=== PATIENT | female | born 1940 | race Caucasian/White ===

== ENCOUNTER 2017-05-27 | Emergency (ER) | payer MEDICARE, OTHER ==
--- NOTE | 2017-05-27 00:32 | EDM.PDOC ---
ED HPI GENERAL MEDICAL PROBLEM - General Chief Complaint: Cardiovascular Problem Stated Complaint: BLOOD PRESSURE [id number] Time Seen by Provider: 05/27/17 00:10 Source of Information: Reports: Patient History Limitations: Reports: No Limitations - History of Present Illness INITIAL COMMENTS - FREE TEXT/NARRATIVE: This 76 yo female patient reports to the ED with elevated blood pressure. The patient reports she has seen by her primary care provider (Sasha Chaudhry) earlier this week due to elevated blood pressure. The patient reports that she was instructed to monitor her blood pressure and follow-up in the clinic. The patient was started on Lorazepam for anxiety and stress. The patient reports she took her blood pressure 3 times today and the last reading was very high. The patient reports no current chest pain, shortness of breath or other symptoms. The patient reports she took her Benicar HCT this morning as she normally does. The patient reports she checked her blood pressure at 2230 tonight after taking a Lorazepam at 2200, but her blood pressure was in the 190' s. With that high reading, the patient got up at 2330 to check her blood pressure again. With a systolic blood pressure >200, the patient came into the ED for further evaluation. Onset: Gradual Duration: Day(s): Severity: Mild Improves with: Reports: None Worsens with: Reports: None Associated Symptoms: Denies: Chest Pain, Fever/Chills, Headaches, Shortness of Breath, Syncope, Weakness - Related Data Allergies Allergy/AdvReac Type Severity Reaction Status Date / Time alendronate sodium Allergy Rash Verified 05/27/17 00:09 [From Fosamax] niacin Allergy Rash Verified 05/27/17 00:09 nifedipine [From Procardia] Allergy Hypotension Verified 05/27/17 00:09 Home Meds: Home Meds Aspirin [Adult Low Dose Aspirin EC] 81 mg PO DAILY 07/09/15 [History] Calcium Carbonate [Calcium] 1 tab PO DAILY 07/09/15 [History] Cholecalciferol (Vitamin D3) [Vitamin D] 5,000 unit PO DAILY 07/09/15 [History] Fenofibrate [Fenofibrate] 1 tab PO DAILY 07/09/15 [History] Olmesartan/Hydrochlorothiazide [Benicar HCT 40-12.5 MG] 1 tab PO DAILY 07/09/15 [History] [place]-3/DHA/Epa/Fish Oil [[place]-3 Fish Oil 1,200 MG Sfgl] 1 cap PO BEDTIME 07/08 [History] Rosuvastatin Calcium [Crestor] 1 tab PO DAILY 07/09/15 [History] metFORMIN [Glucophage] 500 mg PO DAILY 07/14/16 [History] Eszopiclone [Eszopiclone] 1 mg PO BEDTIME 01/16/17 [History] LORazepam [LORazepam] 1 tab PO ASDIRECTED PRN 05/27/17 [History] Past Medical History HEENT History: Reports: Hard of Hearing, Impaired Vision Other HEENT History: WEARS BILAT HEARING AIDES Cardiovascular History: Reports: High Cholesterol, Hypertension Respiratory History: Reports: None Gastrointestinal History: Reports: Colon Polyp, Diverticulosis, Hemorrhoids Genitourinary History: Reports: Urinary Incontinence 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: Musculoskeletal History: Reports: Arthritis, Other (See Below) Other Musculoskeletal History: ARTHRITIS BILAT KNEES Neurological History: Reports: None Psychiatric History: Reports: Anxiety Endocrine/Metabolic History: Reports: Diabetes, Type II, Osteoporosis, Other ( See Below) Other Endocrine/Metabolic History: IMPAIRED GLUCOSE READING Hematologic History: Reports: None Immunologic History: Reports: None Oncologic (Cancer) History: Reports: None Dermatologic History: Reports: None - Infectious Disease History Infectious Disease History: Reports: Chicken Pox, Measles, Mumps - Past Surgical History Head Surgeries/Procedures: Reports: None HEENT Surgical History: Reports: None Cardiovascular Surgical History: Reports: None Respiratory Surgical History: Reports: None GI Surgical History: Reports: Colonoscopy Female Surgical History: Reports: Breast Biopsy, Hysterectomy Endocrine Surgical History: Reports: None Neurological Surgical History: Reports: None Musculoskeletal Surgical History: Reports: None Oncologic Surgical History: Reports: None Dermatological Surgical History: Reports: None Social & Family History - Family History Family Medical History: Noncontributory Cardiac: Reports: [place] Respiratory: Reports: None GI: Reports: None : Reports: None Psychiatric: Reports: Anxiety Endocrine/Metabolic: Reports: Diabetes, type II Hematologic: Reports: None Immunologic: Reports: None - Tobacco Use Smoking Status *Q: Unknown Ever Smoked Second Hand Smoke Exposure: No - Caffeine Use Caffeine Use: Reports: Coffee Other Caffeine Use: AVERAGE OF 3 CUPS OF COFFEE DAILY - Recreational Drug Use Recreational Drug Use: No ED ROS GENERAL - Review of Systems Review Of Systems: ROS reveals no pertinent complaints other than HPI. ED EXAM, GENERAL - Physical Exam Exam: See Below Exam Limited By: No Limitations General Appearance: Alert, WD/WN, No Apparent Distress Eye Exam: Bilateral Eye: EOMI, Normal Inspection, PERRL Ears: Normal External Exam, Normal Canal, Hearing Grossly Normal, Normal TMs Nose: Normal Inspection, Normal Mucosa, No Blood Throat/Mouth: Normal Inspection, Normal Lips, Normal Teeth, Normal Gums, Normal Oropharynx, Normal Voice, No Airway Compromise Head: Atraumatic, Normocephalic Neck: Normal Inspection, Supple, Non-Tender, Full Range of Motion Respiratory/Chest: No Respiratory Distress, Lungs Clear, Normal Breath Sounds, No Accessory Muscle Use, Chest Non-Tender Cardiovascular: Normal Peripheral Pulses, Regular Rate, Rhythm, No Edema, No Gallop, No JVD, No Murmur, No Rub GI/Abdominal: Normal Bowel Sounds, Soft, Non-Tender, No Organomegaly, No Distention, No Abnormal Bruit, No Mass (Female) Exam: Deferred Rectal (Female) Exam: Deferred Back Exam: Normal Inspection, Full Range of Motion, NT Extremities: Normal Inspection, Normal Range of Motion, Non-Tender, Normal Capillary Refill, No Pedal Edema Neurological: Alert, Oriented, CN II-XII Intact, Normal Cognition, Normal Gait, Normal Reflexes, No Motor/Sensory Deficits Psychiatric: Anxious Skin Exam: Warm, Dry, Intact, Normal Color, No Rash Lymphatic: No Adenopathy Course - Vital Signs Last Recorded V/S: Last Vital Signs Temp 35.5 C 05/27/17 00:13 Pulse 52 L 05/27/17 00:30 Resp 20 05/27/17 00:30 BP 181/58 H 05/27/17 00:30 Pulse Ox 96 05/27/17 00:30 - Orders/Labs/Meds Orders: Active Orders 24 hr Category Date Time Status EKG Documentation Completion [RC] URGENT Care 05/27/17 00:16 Ordered Labs: Laboratory Tests 05/27/17 05/27/17 Range/Units 00:12 00:12 WBC 7.7 (5.0-10.0) 10^3/uL RBC 4.66 (4.2-5.4) 10^6/uL Hgb 13.6 (12.0-16.0) g/dL Hct 41.9 (37.0-47.0) % MCV 89.9 (80-100) fL MCH 29.2 (27.0-34.0) pg MCHC 32.5 L (33.0-35.0) g/dL Plt Count 276 (150-450) 10^3/uL Neut % (Auto) 49.2 (42.2-75.2) % Lymph % (Auto) 36.6 (20.5-50.1) % [place] % (Auto) 9.9 H (2-8) % Eos % (Auto) 3.8 H (1.0-3.0) % Baso % (Auto) 0.5 (0.0-1.0) % Sodium 140 (135-145) mmol/L Potassium 3.4 L (3.6-5.0) mmol/L Chloride 103 (101-111) mmol/L Carbon Dioxide 29.0 (21.0-31.0) mmol/L Anion Gap 11.4 BUN 24 H (7-18) mg/dL Creatinine 0.8 (0.6-1.3) mg/dL Est Cr Clr Drug Dosing 48.72 mL/min Estimated GFR (MDRD) > 60 BUN/Creatinine Ratio 30.00 Glucose 136 H (74-105) mg/dL Calcium 9.8 (8.4-10.2) mg/dl Total Bilirubin 0.4 (0.2-1.0) mg/dL AST 24 (10-42) IU/L ALT 21 (10-60) IU/L Alkaline Phosphatase 40 L (42-121) IU/L Troponin I < 0.02 (0.00-0.02) ng/ml Total Protein 7.3 (6.7-8.2) g/dl Albumin 4.1 (3.2-5.5) g/dl Globulin 3.2 Albumin/Globulin Ratio 1.28 Departure - Departure Time of Disposition: 00:49 Disposition: Home, Self-Care 01 Condition: Fair Clinical Impression: Hypertension Qualifiers: Hypertension type: unspecified Qualified Code(s): I10 - Essential (primary) hypertension Instructions: Hypertension, [id number] Forms: ED Department Discharge Care Plan Goals: The patient was advised of the examination, lab, and EKG results during the visit. The patient was encouraged to continue to record her blood pressures to give to her primary care facility. If the patient has any additional symptoms or concerns, the patient should follow-up with her primary care facility or return to the emergency department. - My Orders Last 24 Hours: My Active Orders 05/27/17 00:16 EKG Documentation Completion [RC] URGENT - Assessment/Plan Last 24 Hours: My Active Orders 05/27/17 00:16 EKG Documentation Completion [RC] URGENT
[2017-05-27 00:40] LABS: CHLORIDE,CL 103 mmol/L (101-111); SODIUM,NA 140 mmol/L (135-145)
[2017-05-27 01:06] VITALS: BP 176/64
--- NOTE | 2017-05-30 12:00 | EKG ---
05/27/2017 - XENIA CAICEDO - EKG shows sinus bradycardia with a heart rate of 54 beats per minute. A right bundle branch block. Borderline prolonged QRS complex rate. Corrected QTc of 478. [facility] /[id number]
== END 2017-05-27 00:55 | disposition home or self-care (01) ==
LOC: DL.ED
DX: I10 Essential (primary) hypertension (principal); E78.00 Pure hypercholesterolemia, unspecified; E11.9 Type 2 diabetes mellitus without complications; F41.9 Anxiety disorder, unspecified; Z79.84 Long term (current) use of oral hypoglycemic drugs; Z79.899 Other long term (current) drug therapy; Z79.82 Long term (current) use of aspirin; Z88.8 Allergy status to other drugs, medicaments and biological substances
CPT/HCPCS: 36415; 80053; 84484; 85025; 93005; 93010; 99283

== ENCOUNTER → 2018-08-29 | Outpatient (CLI) | payer MEDICARE, OTHER | LOC: DL.CLIN 14:30 | DX: I10 Essential (primary) hypertension (principal) | CPT/HCPCS: 99213 ==

== ENCOUNTER 2020-03-06 23:42 | Emergency (ER) | payer MEDICARE, OTHER ==
[2020-03-07 00:20] LABS: ANION GAP 13.5 mEq/L (7-13); CHLORIDE,CL 102 mmol/L (98-107); SODIUM,NA 137 mmol/L (136-145)
--- NOTE | 2020-03-07 00:20 | CR ---
PROCEDURE INFORMATION: Exam: XR Chest, 1 View Exam date and time: 03/07/2020 12:09 AM Age: 79 years old Clinical indication: Other: Chest pain TECHNIQUE: Imaging protocol: XR of the chest Views: 1 view. COMPARISON: CR CHEST PORTABLE 03/01/2010 10:51 AM FINDINGS: Lungs: Continued short oblique stranding density over the lateral left middle to lower lung consistent with a scar. No interval airspace disease or Rosio B lines. Pleural space: Still no pneumothorax or suggestion of pleural fluid. Heart/Mediastinum: Borderline cardiomegaly and a fat pad along the cardiac apex still likely. Bones/joints: Diffuse osteopenia again evident. No visible acute bony disease. IMPRESSION: No acute findings or apparent change.
[2020-03-07 01:35] VITALS: BP 165/54; PULSE 57
--- NOTE | 2020-03-07 05:35 | EDM.PDOC ---
ED HPI GENERAL MEDICAL PROBLEM - General Chief Complaint: Chest Pain Stated Complaint: AMBULANACE Time Seen by Provider: 03/06/20 23:45 Source of Information: Reports: Patient, EMS History Limitations: Reports: No Limitations - History of Present Illness INITIAL COMMENTS - FREE TEXT/NARRATIVE: ED with c/o lower anterior chest pain while lying in bed. No radiation, nausea or sweating rated 8/10 at onset- sudden lessened to 1/10 by time EMS arrived pain free on presentation to ED via [facility]. Noted that took new sleeping med combination of melatonin and vitamin for first time tonight. No prior hx of chest pain. Remote david. NIDDM. No COVID exposure. No fever or chills. No nausea vomiting or SOB. Normal BM No urinary sx. - Related Data Allergies Allergy/AdvReac Type Severity Reaction Status Date / Time alendronate sodium Allergy Rash Verified 03/07/20 00:23 [From Fosamax] niacin Allergy Rash Verified 03/07/20 00:23 nifedipine [From Procardia] AdvReac Hypotension Verified 03/07/20 00:23 Home Meds: Home Meds Aspirin [Adult Low Dose Aspirin EC] 81 mg PO DAILY 07/09/15 [History] Calcium Carbonate [Calcium] 1 tab PO DAILY 07/09/15 [History] Cholecalciferol (Vitamin D3) [Vitamin D] 5,000 unit PO DAILY 07/09/15 [History] Fenofibrate 54 mg PO BEDTIME 07/09/15 [History] Olmesartan/Hydrochlorothiazide [Benicar HCT 40-12.5 MG] 1 tab PO BEDTIME 07/09/15 [History] [place]-3/DHA/Epa/Fish Oil [[place]-3 Fish Oil 1,200 MG Sfgl] 1,200 mg PO BEDTIME 07/09/15 [History] Rosuvastatin Calcium [Crestor] 10 mg PO BEDTIME 07/09/15 [History] metFORMIN [Glucophage] 500 mg PO DAILY 07/14/16 [History] Eszopiclone 1 mg PO BEDTIME PRN 01/16/17 [History] LORazepam 0.5 mg PO ASDIRECTED PRN 05/27/17 [History] DULoxetine [Cymbalta] 30 mg PO DAILY 01/15/18 [History] Biotin [Hard Nails] 2,500 mcg PO DAILY 01/28/20 [History] Magnesium 250 mg PO DAILY 01/28/20 [History] Past Medical History HEENT History: Reports: Hard of Hearing, Impaired Vision Other HEENT History: WEARS BILAT HEARING AIDES Cardiovascular History: Reports: High Cholesterol, Hypertension Respiratory History: Reports: None Gastrointestinal History: Reports: Colon Polyp, Diverticulosis, Hemorrhoids Genitourinary History: Reports: Urinary Incontinence 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: Musculoskeletal History: Reports: Arthritis, Other (See Below) Other Musculoskeletal History: ARTHRITIS BILAT KNEES Neurological History: Reports: None Psychiatric History: Reports: Anxiety Endocrine/Metabolic History: Reports: Diabetes, Type II, Osteoporosis, Other (See Below) Other Endocrine/Metabolic History: IMPAIRED GLUCOSE READING Hematologic History: Reports: None Immunologic History: Reports: None Oncologic (Cancer) History: Reports: None Dermatologic History: Reports: None - Infectious Disease History Infectious Disease History: Reports: Chicken Pox, Measles, Mumps - Past Surgical History Head Surgeries/Procedures: Reports: None HEENT Surgical History: Reports: None Cardiovascular Surgical History: Reports: None Respiratory Surgical History: Reports: None GI Surgical History: Reports: Cholecystectomy, Colonoscopy Female Surgical History: Reports: Breast Biopsy, Hysterectomy Endocrine Surgical History: Reports: None Neurological Surgical History: Reports: None Musculoskeletal Surgical History: Reports: None Oncologic Surgical History: Reports: None Dermatological Surgical History: Reports: None Social & Family History - Family History Family Medical History: No Pertinent Family History Cardiac: Reports: [place] Respiratory: Reports: None GI: Reports: None : Reports: None Psychiatric: Reports: Anxiety Endocrine/Metabolic: Reports: Diabetes, type II Hematologic: Reports: None Immunologic: Reports: None Dermatologic: Reports: None - Tobacco Use Tobacco Use Status *Q: Never Tobacco User - Caffeine Use Caffeine Use: Reports: Coffee Other Caffeine Use: DAILY - 2 CUPS - Recreational Drug Use Recreational Drug Use: No ED ROS GENERAL - Review of Systems Review Of Systems: Comprehensive ROS is negative, except as noted in HPI. ED EXAM, GENERAL - Physical Exam Exam: See Below Exam Limited By: No Limitations General Appearance: Alert, No Apparent Distress Eye Exam: Bilateral Eye: EOMI Ears: Normal External Exam Nose: Normal Inspection Throat/Mouth: Normal Inspection, Normal Voice Head: Atraumatic, Normocephalic. No: Facial Swelling Neck: Normal Inspection Respiratory/Chest: No Respiratory Distress, Lungs Clear, Normal Breath Sounds Cardiovascular: Regular Rate, Rhythm, Bradycardia (mid to upper 50's) GI/Abdominal: Normal Bowel Sounds, Soft, Non-Tender, No Distention Extremities: Normal Range of Motion Neurological: Alert, Oriented, Normal Cognition Psychiatric: Normal Affect Skin Exam: Warm, Dry, Intact, Normal Color Course - Vital Signs Last Recorded V/S: Last Vital Signs Temp 97.5 F 03/07/20 01:30 Pulse 57 L 03/07/20 01:30 Resp 20 03/07/20 01:30 BP 165/54 H 03/07/20 01:30 Pulse Ox 99 03/07/20 01:30 - Orders/Labs/Meds Orders: Active Orders 24 hr Category Date Time Status EKG 12 Lead [EKG Documentation Completion] [RC] URGENT Care 03/06/20 23:42 Active EKG Documentation Completion [RC] AM Care 03/07/20 05:00 Active TROPONIN I [CHEM] AM Lab 03/07/20 05:00 Received Labs: Laboratory Tests 03/06/20 03/06/20 03/06/20 Range/Units 23:50 23:50 23:50 WBC 6.5 (5.0-10.0) 10^3/uL RBC 4.03 L (4.2-5.4) 10^6/uL Hgb 12.0 (12.0-16.0) g/dL Hct 36.4 L (37.0-47.0) % MCV 90.3 (80-100) fL MCH 29.8 (27.0-34.0) pg MCHC 33.0 (33.0-35.0) g/dL Plt Count 252 D (150-450) 10^3/uL Neut % (Auto) 51.4 (42.2-75.2) % Lymph % (Auto) 34.5 (20.5-50.1) % [place] % (Auto) 8.9 H (2-8) % Eos % (Auto) 4.3 H (1.0-3.0) % Baso % (Auto) 0.9 (0.0-1.0) % PT 9.9 (9.0-12.0) SEC INR 1.0 (0.9-1.2) D-Dimer, Quantitative < 100 (0-400) ng/mL Sodium 137 (136-145) mmol/L Potassium 3.5 (3.5-5.1) mmol/L Chloride 102 (98-107) mmol/L Carbon Dioxide 25 (21-32) mmol/L Anion Gap 13.5 H (7-13) mEq/L BUN 24 H (7-18) mg/dL Creatinine 1.30 H (0.55-1.02) mg/dL Est Cr Clr Drug Dosing 28.55 mL/min Estimated GFR (MDRD) 39 BUN/Creatinine Ratio 18.5 (No establ ref range) Glucose 111 H (74-99) mg/dL Calcium 8.9 (8.5-10.1) mg/dL Magnesium 1.9 (1.8-2.4) mg/dL Total Bilirubin 0.4 (0.2-1.0) mg/dL AST 58 H (15-37) U/L ALT 48 (14-59) U/L Alkaline Phosphatase 61 (46-116) U/L Troponin I < 0.017 (0.000-0.056) ng/mL Total Protein 7.0 (6.4-8.2) g/dL Albumin 3.7 (3.4-5.0) g/dL Globulin 3.3 Albumin/Globulin Ratio 1.1 Amylase 107 (25-115) U/L Lipase 1301 H (73-393) U/L - Re-Assessments/Exams Free Text/Narrative Re-Assessment/Exam: 03/07/20 06:06 Repeat EKG and troponin unchanged. No further episodes of chest pain. RN reports two loose stools. Discharge instructions to patient. Instructed to follow with PCP this coming week Urgent follow up if nay recurrent chest pain. Departure - Departure Time of Disposition: 05:30 Disposition: Home, Self-Care 01 Condition: Good Clinical Impression: Atypical chest pain, Elevated lipase Instructions: Nonspecific Chest Pain, Adult Additional Instructions: Clinic follow up this week to recheck lipase urgent follow up if recurrent chest pain Don't take melatonin again until discuss with primary care Continue other home medications Sepsis Event Note (ED) - Evaluation Sepsis Screening Result: No Definite Risk - Focused Exam Vital Signs: Vital Signs Temp Pulse Pulse Resp BP Pulse Ox 03/07/20 01:30 97.5 F 57 L 20 165/54 H 99 03/06/20 23:44 97.8 F 53 L 16 161/52 H 93 L - My Orders Last 24 Hours: My Active Orders 03/06/20 23:42 EKG 12 Lead [EKG Documentation Completion] [RC] URGENT 03/07/20 05:00 EKG Documentation Completion [RC] AM TROPONIN I [CHEM] AM - Assessment/Plan Last 24 Hours: My Active Orders 03/06/20 23:42 EKG 12 Lead [EKG Documentation Completion] [RC] URGENT 03/07/20 05:00 EKG Documentation Completion [RC] AM TROPONIN I [CHEM] AM
== END 2020-03-07 06:00 | disposition home or self-care (01) ==
LOC: DL.ED 23:42
DX: R07.89 Other chest pain (principal); R74.8 Abnormal levels of other serum enzymes; I10 Essential (primary) hypertension; E78.00 Pure hypercholesterolemia, unspecified; E11.9 Type 2 diabetes mellitus without complications; F41.9 Anxiety disorder, unspecified; Z88.8 Allergy status to other drugs, medicaments and biological substances; Z79.82 Long term (current) use of aspirin; Z79.84 Long term (current) use of oral hypoglycemic drugs; Z79.899 Other long term (current) drug therapy; Z90.710 Acquired absence of both cervix and uterus; Z90.49 Acquired absence of other specified parts of digestive tract
CPT/HCPCS: 36415; 71045; 80053; 82150; 83690; 83735; 84484; 85025; 85379; 85610; 93005; 99283; 99285-25